=== PATIENT | male | born 1940 | race Caucasian/White ===

== ENCOUNTER 2016-09-30 16:59 | Emergency (ER) | payer MEDICARE, MEDICAID ==
[2016-09-30 17:15] VITALS: BMI 23.7
--- NOTE | 2016-09-30 17:19 | EDPRACDOC ---
- General Information Chief Complaint: Chest Pain Stated Complaint: CP Time Seen by Provider: 09/30/16 17:17 Information Source: Patient, Services Clerk (D) Mode of Arrival: Car Home Medications: Home Medications Atorvastatin Calcium [Lipitor] 10 mg PO QHS 07/20/16 Valsartan [Diovan] 80 mg PO DAILY 07/20/16 Aspirin (Enteric Coated) [Halfprin] 81 mg PO DAILY 07/29/16 Gabapentin 100 mg PO BID 07/29/16 Famotidine [Pepcid] 40 mg PO HS 09/02/16 Metoprolol Tartrate [Lopressor] 50 mg PO BID 09/02/16 Acetaminophen [Tylenol] 325 mg PO Q8H PRN 09/13/16 Ibuprofen 200 mg PO Q8H PRN 09/13/16 Oxycodone Immediate Release [Oxycodone Immediate Release (OxyIR)] 1 tab PO Q4H PRN 09/13/16 Promethazine HCl [Phenergan] 1 tab PO Q6H PRN 09/13/16 Allergies/Adverse Reactions: Allergies Allergy/AdvReac Type Severity Reaction Status Date / Time No Known Allergies Allergy Verified 09/30/16 17:05 - History of Present Illness Onset: 2 pm yesterday (RECURRENT OVER WEEKS AND MONTHS) Chest Pain Location: Reports: Substernal, Left Chest Pain Radiation: Reports: Back Symptoms Occur: Reports: Gradually, At Rest, With light exertion Cardiac Risk Factors: Reports: Hypertension Cardiac History of: Reports: Similar Pain in Past, Stress Test (07/2016 CARDIOLYTE STRESS WNL) PE Risk Factors: Reports: None Prehospital Care: Reports: None Pain Came On: Reports: Gradually Pain Status: Present Now Pain Description: Reports: Aching. Denies: Sharp, Stabbing, Pressure Pain Severity: Mild Pain Worsens With: Reports: Nothing Pain Improves With: Reports: Nothing Associated Signs and Symptoms: Reports: None ED Past Medical History - History Reviewed Yes Nurses notes reviewed and agree except as marked - Patient Medical History Cardiac History: Reports: Hypertension, Hypercholesterolemia. Denies: Atrial Fibrillation, Congestive Heart Failure, Heart Attack, Cardiac Catheterization, Stress Test, Syncope Respiratory History: Reports: COPD, Pulmonary Embolism (IVC FILTER) GI/ History: Reports: Gastroesophageal Reflux, BPH Musculoskeletal History: Reports: Osteoarthritis Psychological History: Reports: Anxiety. Denies: Depression, Substance Use Disorder Systemic History: Reports: Cancer (PROSTATE), Diabetes (diet controlled, has neuropathy) Surgical History: Reports: Cholecystectomy, Hernia Surgery (10 years ago), Other (TURP). Denies: Cardiac Catheterization Date of Last Radiation Treatment: 5 years - Family Medical History Reports: Cancer (brother throat cancer), Cardiac Disorders (mom- CAD, [place] 1 year ago (89)). Denies: Hypertension, Diabetes, Stroke - Social Medical History Smoking Status: Heavy tobacco smoker (5 or more cigarettes/day or daily pipe/ cigar) Social History: Denies: Substance Use Disorder ETOH: None Substance Abuse: None Lives With: Family Lives In: Home EDM Review of Systems - Review of Systems ROS Negative Except as Marked: Yes All systems reviewed and were negative except as marked - Physical Exam Constitutional: No apparent distress, Alert (Awake), Other (STOIC) Oriented to: Time, Person, Place Last recorded Vital Signs: Last Vital Signs Temp 97.9 F 09/30/16 17:09 Pulse 60 09/30/16 17:09 Resp 18 09/30/16 17:09 BP 161/73 09/30/16 17:09 Pulse Ox 98 09/30/16 17:09 Oxygen Pulse Oxygen Saturation 98 O2 Device Room Air Oxygen Flow Rate Fraction of Inspired Oxygen ( FIO2) - HEENT Head: Normal ( normocephalic) Eye Exam: Normal (PERRL, EOMI, Sclera white) Oropharynx: Normal (Pharynx:Moist without exudate,Gums-no swelling) Tympanic Membrane: Normal ENT EAC: Normal TMJ: Normal Nose: No Symptoms Reported (septum midline) Neck: Normal (FROM, trachea at midline) - Respiratory/Cardiovascular Respiratory: Normal - CTA (BBS clear to auscultation without adventitious sounds ) Cardiovascular: Normal (RRR without murmur, gallop or rub) - GI Auscultation: Normal (NABS) Palpation: Normal (Soft,No rebound or guarding, non distended) Tenderness: Mild (ONE SUBQ AREA APPROX 2 CM DIAMETER, FEEL LIKE LIPOMA. PT POINTS TO THIS AREA OF PAIN.). negative: Guarding, RLQ, Rebound, Rigidity [place]'s Sign: Negative - Bladder: Normal - Musculoskeletal Back: Normal (Non-Tender) Extremities: Normal (Normal tone, Pulses 2+ No cyanosis or edema, FROM) - Integumentary Skin: Normal, Warm, Dry Lymphatics: Normal (no adenopathy) - Neurologic Memory Impaired: Normal Motor Function: Normal (Normal tone, Pulses 2+ No cyanosis or edema, FROM) Cranial Nerve: Normal (CN II-X11 intact sensation, strength 5/5) Cerebellar: Normal Mood Description: Normal Thought: Coherent Perception: Normal ED Chest Pain Exam - Respiratory/Cardiovascular Respiratory: Normal - CTA (clear to auscultation without adventitious sounds) Cardiovascular/Chest: Normal (RRR without murmur, gallop or rub) Radial Pulse: Normal Femoral Pulse: Normal Pedal Pulse: Normal Carotid Arteries: Normal Edema: 5 Chest Palpation: Normal (No chest tenderness) - Action Patient received Aspirin within last 24 hours?: Yes ASA given in the ED: No - Results 09/30/16 17:48 09/30/16 17:48 - EKG EKG #1 EKG Time: 17:09 -: Yes EKG interpreted by me Rate: bpm: 61 [place]: Normal Rhythm: NSR Block: None Hypertrophy: None ST: Nonsp Comparison: 08/04/16 (NO SIGNIF CHANGE) - Diagnostic Imaging Chest Image interpreted by: Radiologist Patient Name: KIRILL BURGESS LOC: ED : 1940 AGE: 75 Order Date:09/30/16 Date of Service:04/09 Report # [id number] Ord Physician: Mimi Yuen MD Exam # [id number] Emergency Physician: Mimi Yuen MD Exam(s): [id number] RAD/DG CHEST PORTABLE CLINICAL DATA: Chest pain EXAM: PORTABLE CHEST 1 VIEW COMPARISON: 08/04/2016 FINDINGS: The heart size and mediastinal contours are within normal limits. Both lungs are clear. The visualized skeletal structures are unremarkable. IMPRESSION: No active disease. Electronically Signed By: Lorri Larose M.D. On: 09/30/2016 17:43 Electronically Signed By: Lorri Larose MD Electronically Signed Date/Time: [id number] Dictate Date/Time: 09/30/161741 Technologist: Daylin Sainz Transcribed By: Yasmin Transcribed Date/Time: 09/30/161742 - Additional Information MULTIPLE CT OF CHEST AND ABD FOR SAME COMPLAINTS OVER THE PAST 2 YEARS. - Departure Disposition: Home Condition: Stable Final Diagnosis: Atypical chest pain, Abdominal wall pain Instructions: Chest Pain (ED), Chest Wall Pain, Non-pharmacological Pain Management Therapies for Adults (GEN), Abdominal Pain (ED) Education/Counseling Given To: Patient, Family Member Education/Counseling Given Regarding: Diagnosis, Treatment, Prognosis Referrals: Dg Ricci MD [Primary Care Provider] - One Week
--- NOTE | 2016-09-30 17:46 | DIRPT ---
CLINICAL DATA: Chest pain EXAM: PORTABLE CHEST 1 VIEW COMPARISON: 08/04/2016 FINDINGS: The heart size and mediastinal contours are within normal limits. Both lungs are clear. The visualized skeletal structures are unremarkable. IMPRESSION: No active disease. Electronically Signed By: Lorri Larose M.D. On: 09/30/2016 17:43
[2016-09-30 17:58] LABS: AUTOMATED BASOPHIL 0.6 % (0-2); AUTOMATED EOSINOPHIL 1.4 % (0-5); AUTOMATED LYMPH 17.1 % (17-44); AUTOMATED MONOCYTE 11.7 % (3-10); AUTOMATED NEUTROPHIL 69.2 % (45-76); MPV 8.7 fL (7.4-10.4)
[2016-09-30 18:11] LABS: PARTIAL THROMB. TIME 25.7 SEC (22-35); PT-INR 1.1
[2016-09-30 18:15] LABS: BLOOD UREA NITROGEN 14 MG/DL (9-20); CALCIUM 9.4 MG/DL (8.4-10.2); CALCULATED OSMOLALITY 276 MOs/Kg (270-290); CHLORIDE 107 mEq/L (98-107); GLUCOSE 90 MG/DL (70-99); SODIUM LEVEL 143 mEq/L (137-146); TOTAL PROTEIN 7.6 G/DL (6.3-8.2)
[2016-09-30 19:50] LABS: LEUKOCYTES/URINE NEG (NEGATIVE); NITRITE/URINE NEG (NEGATIVE); RBC/URINE 0-2 (0-2); URINE OCCULT BLOOD 1+ (NEG/TRACE)
[2016-09-30 21:56] VITALS: BP 154/78; PULSE 62; TEMP 98
== END 2016-09-30 21:45 | disposition home or self-care (01) ==
LOC: ED 16:59
DX: R07.89 Other chest pain (principal); R10.9 Unspecified abdominal pain; I10 Essential (primary) hypertension; E78.00 Pure hypercholesterolemia, unspecified; J44.9 Chronic obstructive pulmonary disease, unspecified; K21.9 Gastro-esophageal reflux disease without esophagitis; N40.0 Benign prostatic hyperplasia without lower urinary tract symptoms; F41.9 Anxiety disorder, unspecified; E11.40 Type 2 diabetes mellitus with diabetic neuropathy, unspecified; F17.200 Nicotine dependence, unspecified, uncomplicated; Z86.711 Personal history of pulmonary embolism; Z79.899 Other long term (current) drug therapy
CPT/HCPCS: 36415; 71010; 80053; 81001; 83880; 84484; 85025; 85610; 85730; 93005; 99284